=== PATIENT | female | born 1975 | race Caucasian/White ===

== ENCOUNTER 2021-01-23 23:41 | Emergency (ER) | payer BC ==
[~2021-01-23] VITALS: Ht 157.5 cm; Wt 65.8 kg
[2021-01-23 23:48] VITALS: BP_SYST 136
--- NOTE | 2021-01-23 23:50 | NUR ---
BIB BLS [facility] HOME C/O WAKING UP IN A PANIC AFTER FEELING CHEST TIGHTNESS, NOW RESOLVED, +LEFT ARM HEAVINESS. HX OF PANIC ATTACKS
--- NOTE | 2021-01-23 23:54 | NUR ---
EKG performed at BS by DILEPE DE LA FUENTE. Physician given copy of EKG for review.
--- NOTE | 2021-01-23 23:55 | NUR ---
DR GALLEGOS AT BEDSIDE FOR MSE
--- NOTE | 2021-01-24 | NUR ---
Patient triaged and placed in waiting room. VSS and patient appears in no acute distress at this time. Accompanied by SELF, awaiting available bed.
[2021-01-24 00:54] LABS: ANION GAP 14 (5-15); CALCIUM 9.9 mg/dL (8.4-11.0); CHLORIDE 97 mmol/L (98-107); CREATININE 0.79 mg/dL (0.55-1.30); GLUCOSE 128 mg/dL (70-99); SODIUM SERUM 137 mmol/L (136-145); UREA NITROGEN, BLOOD 22 mg/dL (8-21)
[2021-01-24 00:59] LABS: BASOPHILS % (AUTO) 0.3 % (0.0-2.0); EOSINOPHILS % (AUTO) 0.1 % (0.0-4.0); HEMATOCRIT 41.5 % (36-48); HEMOGLOBIN 13.7 g/dL (12.0-16.0); LYMPHOCYTES # (AUTO) 1.5 K/uL (1.0-5.5); LYMPHOCYTES % (AUTO) 14.2 % (20.5-51.5); MEAN CORPUSCULAR HEMOGLOBIN 29 pg (27-31); MEAN CORPUSCULAR HGB CONC 33 % (32-36); MEAN CORPUSCULAR VOLUME 89 fL (79.0-98.0); MONOCYTES # (AUTO) 0.4 K/uL (0.0-1.0); MONOCYTES % (AUTO) 3.9 % (1.7-9.3); NEUTROPHILS # (AUTO) 8.6 K/uL (1.8-7.7); NEUTROPHILS % (AUTO) 81.5 % (40.0-70.0); PLATELET COUNT (AUTO) 314 K/uL (130-430); RED BLOOD CELL COUNT(AUTO) 4.67 MIL/uL (4.2-6.2); WHITE BLOOD COUNT (AUTO) 10.6 K/uL (4.8-10.8)
[2021-01-24 01:03] LABS: GFR AFRICAN AMERICAN 102 mL/min (>90)
[2021-01-24 01:06] LABS: ALANINE AMINOTRANSFERASE 32 U/L (12-78); ALBUMIN 4.1 g/dL (3.4-4.8); ASPARTATE AMINOTRANSFERASE < 5 U/L (10-37); HCG,QUANTITATIVE 0 mIU/ML (0-6); TOTAL BILIRUBIN 0.3 mg/dL (0.0-1.0)
--- NOTE | 2021-01-24 02:15 | NUR ---
DR. GALLEGOS UPDATING PT ON POC
[2021-01-24 02:20] VITALS: BP_SYST 136
--- NOTE | 2021-01-24 02:20 | NUR ---
Patient given written and verbal discharge instructions and verbalizes understanding. ER MD discussed with patient the results and treatment provided. Patient in stable condition. ID arm band removed. Rx of NONE given. Patient educated on pain management and to follow up with PMD. Pain Scale 0. Opportunity for questions provided and answered. Medication side effect fact sheet provided.
== END 2021-01-24 02:20 | disposition home or self-care (01) ==
LOC: SED 23:41
DX: F41.0 Panic disorder [episodic paroxysmal anxiety] (principal); R07.89 Other chest pain
CPT/HCPCS: 36415; 80053; 84484; 84702; 85025; 93005; 99284

== ENCOUNTER 2021-02-13 10:31 | Emergency (ER) | payer BC, SELFPAY ==
[~2021-02-13] VITALS: Ht 167.6 cm; Wt 93.0 kg
--- NOTE | 2021-02-13 11:05 | NUR ---
Placed in the tent , pt on stable condition
--- NOTE | 2021-02-13 11:10 | NUR ---
Pt ambulatory, A&Ox4, pt presents to ER with cough/congestion, O2 98%, skin pink and warm, cap refill <3, VSS.
--- NOTE | 2021-02-13 11:30 | NUR ---
Dr Oviedo evaluating patient at bedside
[2021-02-13 11:44] VITALS: BP_SYST 122
--- NOTE | 2021-02-13 11:57 | NUR ---
Patient swabbed for covid (shaye). Sample brought to the lab.
[2021-02-13] MEDS ORDERED: KETOROLAC TROMETHAMINE 30 MG VIAL IM ONE (12:30)
[2021-02-13] MEDS ORDERED: LIDOCAINE VISCOUS 2%, 15 ML UDC MM ONE (12:30)
[2021-02-13] MEDS ORDERED: IBUP-1969 PO (12:43)
[2021-02-13] MEDS ORDERED: BENZ1LOZ58 PO (12:43)
[2021-02-13 14:33] VITALS: BP_SYST 132
--- NOTE | 2021-02-13 14:33 | NUR ---
Patient given written and verbal discharge instructions and verbalizes understanding. ER MD discussed with patient the results and treatment provided. Patient in stable condition. ID arm band removed. Rx of Ibuprofen given. Patient educated on pain management and to follow up with PMD. Pain Scale 2/10 Opportunity for questions provided and answered. Medication side effect fact sheet provided.
== END 2021-02-13 14:33 | disposition home or self-care (01) ==
LOC: SED 10:31
DX: U07.1 COVID-19 (principal); J45.909 Unspecified asthma, uncomplicated
CPT/HCPCS: 87426; 96372; 99283; J1885; J2001; 36415

== ENCOUNTER 2021-04-13 20:45 | Emergency (ER) | payer BC, SELFPAY ==
[~2021-04-13] VITALS: Ht 157.5 cm; Wt 63.5 kg
[~2021-04-13 20:45] MED LIST: BENZ1LOZ58 PO; IBUP-1969 PO
[2021-04-13 20:57] VITALS: BP_SYST 139
[2021-04-13 22:29] LABS: BILIRUBIN,URINE NEGATIVE (NEGATIVE); BLOOD, URINE NEGATIVE (NEGATIVE); CLARITY/URINE CLEAR (CLEAR); COLOR,URINE YELLOW (YELLOW); GLUCOSE,URINE NEGATIVE (NEGATIVE); KETONES,URINE NEGATIVE (NEGATIVE); LEUKOCYTE ESTERASE ,URINE NEGATIVE (NEGATIVE); NITRITE, URINE NEGATIVE (NEGATIVE); PROTEIN URINE NEGATIVE (NEGATIVE); UROBILINOGEN,URINE 0.2 (0.2-1.0)
[2021-04-13] MEDS ORDERED: NACL 0.9% 1,000 ML IV ONE (23:45)
[2021-04-13] MEDS ORDERED: PHENAZOPYRIDINE HCL 100 MG TABLET PO ONE (23:45)
[2021-04-13 23:47] LABS: BACTERIA,URINE RARE /HPF (None Seen); MUCUS,URINE None Seen /LPF (None Seen); RBC,URINE NONE SEEN /HPF (0-3); WBC,URINE 0-3 /HPF (0-3)
[2021-04-14] MEDS ORDERED: NAPR-1169 PO (02:43)
[2021-04-14] MEDS ORDERED: METR-154 PO (02:43)
[2021-04-14] MEDS ORDERED: PHEN-890 PO (02:43)
[2021-04-14 03:07] VITALS: BP_SYST 122
== END 2021-04-14 03:09 | disposition home or self-care (01) ==
LOC: SED 20:45
DX: N83.202 Unspecified ovarian cyst, left side (principal); N83.201 Unspecified ovarian cyst, right side; R35.0 Frequency of micturition; R39.15 Urgency of urination
CPT/HCPCS: 76830; 76857; 81000; 81003; 87210; 96360; 99284; J7030

== ENCOUNTER 2022-05-11 23:54 | Emergency (ER) | payer BC ==
[~2022-05-11] VITALS: Ht 157.5 cm; Wt 67.1 kg
[~2022-05-11 23:54] MED LIST changes: -BENZ1LOZ58 PO; +BENZ1LOZ73 PO; +METR-154 PO; +NAPR-1169 PO; +PHEN-890 PO
[2022-05-12 00:05] VITALS: BP_SYST 121
--- NOTE | 2022-05-12 00:13 | NUR ---
Patient to ER bed 01 to gown for evaluation. Side rails up. Report given to TREASURE HERNANDEZ.
[2022-05-12] MEDS ORDERED: IBUPROFEN 600 MG TABLET PO ONE (01:00)
[2022-05-12] MEDS ORDERED: IPRATROPIUM/ALBUTEROL SULFATE 3 ML AMPUL.NEB (DUONEB) INH ONE (01:00)
[2022-05-12] MEDS ORDERED: predniSONE 20 MG TABLET PO ONE (01:00)
[2022-05-12] MEDS ORDERED: PRED20TA PO (02:38)
[2022-05-12] MEDS ORDERED: PSEU120T57 PO (02:38)
[2022-05-12] MEDS ORDERED: GUAI-723 PO (02:38)
[2022-05-12] MEDS ORDERED: ALBMDI INH (02:38)
[2022-05-12 02:53] VITALS: BP_SYST 118
== END 2022-05-12 02:53 | disposition home or self-care (01) ==
LOC: SED 23:54
DX: J45.901 Unspecified asthma with (acute) exacerbation (principal); J06.9 Acute upper respiratory infection, unspecified; R05.9 Cough, unspecified; R06.02 Shortness of breath; M54.6 Pain in thoracic spine; Z79.899 Other long term (current) drug therapy; Z20.822 Contact with and (suspected) exposure to COVID-19
CPT/HCPCS: 99284; 87426; 36415; 94640; 87804 ×2; 71045; J7512; 94760